=== PATIENT | male | born 1985 | race Caucasian/White ===

== ENCOUNTER 2017-02-26 09:08 | Emergency (ER) | payer OTHER ==
[~2017-02-26] VITALS: Ht 180.3 cm; Wt 105.0 kg
[~2017-02-26 09:08] MED LIST: XANAX
[2017-02-26] MEDS ORDERED: PROP80CA2 PO (09:14)
[2017-02-26] MEDS ORDERED: SODIUM CHLORIDE 0.9% 1,000 ML IV ONE (09:28)
[2017-02-26] MEDS ORDERED: LORAZEPAM 2MG/ML CPJ IV ONE (09:30)
[2017-02-26] MEDS ORDERED: NITROGLYCERIN OINT 1GM/INCH UDPKT TD ONE (09:30)
[2017-02-26] MEDS ORDERED: ASPIRIN 81MG TABLET PO ONE (09:30)
[2017-02-26 09:41] LABS: BASOPHILS % 0.6 % (0.0-2.0); EOSINOPHILS % 1.4 % (0.0-5.0); HEMATOCRIT. 49.7 % (42.0-52.0); HEMOGLOBIN. 16.8 g/dL (14.0-18.0); MEAN CORPUSCULAR HEMOGLOBIN 29.5 pg (28.0-32.0); MEAN CORPUSCULAR HGB CONC 33.8 g/dL (31.0-37.0); MEAN CORPUSCULAR VOLUME 87.4 fL (80.0-94.0); MONOCYTES % 6.2 % (2.0-8.0); NEUTROPHILS % 64.8 % (40.0-76.0); PLATELET 197 x1000/uL (130-400); RED BLOOD CELL COUNT 5.68 mill/uL (4.7-6.1); RED CELL DISTRIBUTION WIDTH 14.2 % (11.6-14.6); WHITE BLOOD COUNT 8.8 x1000/uL (4.5-11.0)
[2017-02-26 09:48] LABS: PROTHROMBIN TIME 10.9 sec
[2017-02-26 10:13] LABS: LACTIC ACID 4.2 mmol/L (0.4-2.0)
[2017-02-26] MEDS ORDERED: SODIUM CHLORIDE 0.9% 1000ML BAG (SEPSIS BOLUS) IV ONE (10:15)
[2017-02-26 10:18] LABS: ALANINE AMINOTRANSFERASE 48 IU/L (13-61); ALBUMIN 3.8 g/dL (3.4-5.0); ANION GAP 15; CALCIUM 8.5 mg/dL (8.5-10.1); CARBON DIOXIDE 22 mEq/L (21-32); CHLORIDE 109 mEq/L (98-107); ETHANOL BLOOD 120 mg/dL; INDEX HEMOLYSI 1 (1-3); INDEX ICTERIC 1 (1-4); INDEX LIPEMIC 1 (1-3); LIPASE 137 IU/L (73-393); UREA NITROGEN BLOOD 6 mg/dL (7-21)
[2017-02-26 10:22] LABS: TROPONIN I < 0.02 ng/mL (0.00-0.04); eGFR > 60 mL/min (>60)
[2017-02-26 10:27] LABS: NT PRO B-TYPE NATRIURETIC PEP 41 pg/mL (5-125)
[2017-02-26 10:29] LABS: THYROID STIMULATING HORMONE 0.71 uIU/mL (0.36-3.74)
[2017-02-26] MEDS ORDERED: POTASSIUM CHLORIDE 20MEQ TABLET SR PO ONE (10:45)
[2017-02-26] MEDS ORDERED: VISCOUS LIDOCAINE 2% 15 ML UDC PO STA (11:01)
[2017-02-26] MEDS ORDERED: MAGNESIUM/ALUMINUM HYDROXIDE/SIMETHICONE 30ML UDC PO STA (11:01)
[2017-02-26] MEDS ORDERED: MORPHINE SULFATE 4 MG/ML CPJ (NOT FOR IM USE) IV STA (11:01)
[2017-02-26] MEDS ORDERED: ONDANSETRON HCL 4MG/2ML VIAL IV STA (11:01)
[2017-02-26 11:23] LABS: CLARITY URINE CLEAR (CLEAR); COLOR URINE YELLOW (YELLOW); GLUCOSE URINE NEGATIVE (NEGATIVE); KETONES URINE 1+ (NEGATIVE); LEUKOCYTE ESTERASE URINE NEGATIVE (NEGATIVE); NITRITE URINE NEGATIVE (NEGATIVE); OCCULT BLOOD URINE TRACE (NEGATIVE); PH URINE 5.5 (4.5-8.0); PROTEIN URINE NEGATIVE (NEGATIVE); SPECIFIC GRAVITY URINE 1.018 (1.005-1.030); UROBILINOGEN URINE 0.2 E.U./dL (0.2-1.0)
[2017-02-26 11:36] LABS: BACTERIA URINE NONE SEEN; RBC URINE 0-2 /hpf (0-2); SQUAMOUS EPITHELIAL CELL URINE RARE /lpf (RARE/1+); WBC URINE 0-2 /hpf (0-2)
[2017-02-26 11:37] LABS: HYALINE CASTS URINE 0-5 /lpf
[2017-02-26 11:54] VITALS: BP 121/93
[2017-02-26 12:05] LABS: *AMPHETAMINES SCREEN URINE NEGATIVE (NEGATIVE); *BARBITURATES SCREEN URINE NEGATIVE (NEGATIVE); *BENZODIAZEPINES SCREEN URINE NEGATIVE (NEGATIVE); *COCAINE SCREEN URINE NEGATIVE (NEGATIVE); CANNABINOID URINE SCREEN NEGATIVE (NEGATIVE); ECSTASY MDMA SCREEN URINE NEGATIVE (NEGATIVE); METHADONE URINE SCREEN NEGATIVE (NEGATIVE); OPIATES URINE SCREEN NEGATIVE (NEGATIVE); PHENCYCLIDINE URINE SCREEN NEGATIVE (NEGATIVE)
== END 2017-02-26 13:37 | disposition home or self-care (01) ==
LOC: ER 09:28
DX: F41.0 Panic disorder [episodic paroxysmal anxiety] (principal); F10.10 Alcohol abuse, uncomplicated; R07.89 Other chest pain; I10 Essential (primary) hypertension; F17.210 Nicotine dependence, cigarettes, uncomplicated; E87.2 Acidosis; E87.6 Hypokalemia; Y90.6 Blood alcohol level of 120-199 mg/100 ml
CPT/HCPCS: 36415; 71010; 80053; 80305; 81001; 83605; 83690; 83880; 84443; 84484; 85025; 85610; 87040; 87086; 93005; 96361; 96374; 96375; 99285; G0482; J2060; J2270; J2405; J7030; Z7610

== ENCOUNTER 2017-06-01 09:44 | Emergency (ER) | payer OTHER ==
[~2017-06-01] VITALS: Ht 180.3 cm; Wt 100.0 kg
[~2017-06-01 09:44] MED LIST changes: +ALPR0.5T96 PO; +PROP80CA2 PO; -XANAX
[2017-06-01] MEDS ORDERED: SODIUM CHLORIDE 0.9% 1,000 ML IV ONE (10:14)
[2017-06-01] MEDS ORDERED: KETOROLAC 30MG/ML VIAL IV STA (10:14)
[2017-06-01 10:46] LABS: BASOPHILS % 0.6 % (0.0-2.0); EOSINOPHILS % 1.3 % (0.0-5.0); HEMATOCRIT. 47.4 % (42.0-52.0); HEMOGLOBIN. 16.2 g/dL (14.0-18.0); LYMPHOCYTES % 10.6 % (20.0-50.0); MEAN CORPUSCULAR HEMOGLOBIN 29.4 pg (28.0-32.0); MEAN CORPUSCULAR VOLUME 86.1 fL (80.0-94.0); MEAN PLATELET VOLUME 7.6 fl (7.4-10.4); MONOCYTES % 6.4 % (2.0-8.0); NEUTROPHILS % 81.1 % (40.0-76.0); PLATELET 231 x1000/uL (130-400); RED CELL DISTRIBUTION WIDTH 15.6 % (11.6-14.6)
[2017-06-01 10:54] LABS: CHLORIDE 107 mEq/L (98-107); PROTHROMBIN TIME 10.7 sec
[2017-06-01 11:05] LABS: CARBON DIOXIDE 22 mEq/L (21-32); ETHANOL BLOOD 100 mg/dL
[2017-06-01] MEDS ORDERED: FAMOTIDINE 20MG/2ML VIAL IV SCH (11:45)
[2017-06-01 12:15] VITALS: BP 145/50
[2017-06-01] MEDS ORDERED: DEXTROSE 50% WATER 50ML SYRINGE IV PRN (12:15)
[2017-06-01] MEDS ORDERED: DEXTROSE 50% WATER 50ML SYRINGE IV ONE (12:15)
[2017-06-01] MEDS ORDERED: FAMOTIDINE 20MG/2ML VIAL IV ONE (12:30)
[2017-06-02] MEDS ORDERED: FAMOTIDINE 20MG/2ML VIAL IV ONE (09:00)
== END 2017-06-01 13:42 | disposition home or self-care (01) ==
LOC: ER 09:45
DX: R10.9 Unspecified abdominal pain (principal); R07.2 Precordial pain; R05 Cough; F10.10 Alcohol abuse, uncomplicated; Z72.0 Tobacco use
CPT/HCPCS: 36415; 80053; 83690; 85025; 85610; 93005; 96361; 96374; 96375; 99285; G0482; J1885; J3490; J7030; Z7610

== ENCOUNTER 2017-08-01 13:22 | Emergency (ER) | payer OTHER ==
[~2017-08-01] VITALS: Ht 180.3 cm; Wt 108.0 kg
[~2017-08-01 13:22] MED LIST changes: +ALPR0.5T PO; -ALPR0.5T96 PO; +METO25TA6 PO
[2017-08-01 15:52] LABS: BASOPHILS % 0.8 % (0.0-2.0); HEMATOCRIT. 46.4 % (42.0-52.0); HEMOGLOBIN. 15.8 g/dL (14.0-18.0); LYMPHOCYTES % 16.4 % (20.0-50.0); MEAN CORPUSCULAR HEMOGLOBIN 29.5 pg (28.0-32.0); MEAN CORPUSCULAR VOLUME 86.5 fL (80.0-94.0); MEAN PLATELET VOLUME 8.1 fl (7.4-10.4); MONOCYTES % 6.1 % (2.0-8.0); NEUTROPHILS % 75.7 % (40.0-76.0); PLATELET 254 x1000/uL (130-400); RED BLOOD CELL COUNT 5.36 mill/uL (4.7-6.1); RED CELL DISTRIBUTION WIDTH 13.6 % (11.6-14.6)
[2017-08-01 16:08] LABS: CARBON DIOXIDE 24 mEq/L (21-32); CHLORIDE 105 mEq/L (98-107)
[2017-08-01 16:10] LABS: TROPONIN I < 0.02 ng/mL (0.00-0.04)
[2017-08-01] MEDS ORDERED: FAMOTIDINE 20MG/2ML VIAL IV STA (16:55)
[2017-08-01] MEDS ORDERED: ONDANSETRON HCL 4MG/2ML VIAL IV STA (16:55)
[2017-08-01] MEDS ORDERED: MORPHINE SULFATE 4 MG/ML CPJ (NOT FOR IM USE) IV STA (16:55)
[2017-08-01] MEDS ORDERED: SODIUM CHLORIDE 0.9% 1,000 ML IV ONE (16:55)
[2017-08-01 18:57] LABS: INR 1.1; PROTHROMBIN TIME 11.2 sec (9.4-11.6)
[2017-08-01] MEDS ORDERED: ONDANSETRON HCL 4MG/2ML VIAL IV ONE (19:00)
[2017-08-01] MEDS ORDERED: MORPHINE SULFATE 4 MG/ML CPJ (NOT FOR IM USE) IV ONE (19:00)
[2017-08-01] MEDS ORDERED: KETOROLAC 30MG/ML VIAL IV ONE (19:15)
[2017-08-01 19:55] VITALS: BP 121/71
== END 2017-08-01 22:37 | disposition home or self-care (01) ==
LOC: ER 14:54 → CANBEDREQ 20:32 → ER 22:37
DX: R10.31 Right lower quadrant pain (principal); R16.0 Hepatomegaly, not elsewhere classified; R00.0 Tachycardia, unspecified; I10 Essential (primary) hypertension; K56.60 Unspecified intestinal obstruction; L02.211 Cutaneous abscess of abdominal wall; F41.9 Anxiety disorder, unspecified; F17.210 Nicotine dependence, cigarettes, uncomplicated; Z87.19 Personal history of other diseases of the digestive system; Z71.6 Tobacco abuse counseling
CPT/HCPCS: 36415; 71010; 74176; 80053; 83690; 84484; 85025; 85610; 93005; 96361; 96374; 96375; 96376; 99285; 99406; G0482; J1885; J2270; J2405; J3490; J7030

== ENCOUNTER 2017-09-25 13:22 | Emergency (ER) | payer OTHER ==
[~2017-09-25] VITALS: Ht 180.3 cm; Wt 110.0 kg
[2017-09-25] MEDS ORDERED: MORPHINE SULFATE 4 MG/ML CPJ (NOT FOR IM USE) IV STA (14:14)
[2017-09-25 14:35] LABS: BASOPHILS % 0.9 % (0.0-2.0); EOSINOPHILS % 0.6 % (0.0-5.0); HEMATOCRIT. 49.2 % (42.0-52.0); HEMOGLOBIN. 17.2 g/dL (14.0-18.0); LYMPHOCYTES % 21.5 % (20.0-50.0); MEAN CORPUSCULAR HEMOGLOBIN 29.8 pg (28.0-32.0); MEAN CORPUSCULAR VOLUME 85.4 fL (80.0-94.0); MEAN PLATELET VOLUME 7.5 fl (7.4-10.4); MONOCYTES % 5.6 % (2.0-8.0); NEUTROPHILS % 71.4 % (40.0-76.0); PLATELET 281 x1000/uL (130-400); RED BLOOD CELL COUNT 5.76 mill/uL (4.7-6.1)
[2017-09-25 14:48] LABS: D-DIMER 0.57 mg/L FEU (<0.50); PROTHROMBIN TIME 10.7 sec (9.4-11.6)
[2017-09-25 14:51] LABS: CARBON DIOXIDE 25 mEq/L (21-32); CHLORIDE 104 mEq/L (98-107)
[2017-09-25] MEDS ORDERED: SODIUM CHLORIDE 0.9% 1,000 ML IV SCH (15:20)
[2017-09-25] MEDS ORDERED: IPRATROPIUM/ALBUTEROL 0.5-3(2.5)MG/3ML NEB INH PRN (15:30)
[2017-09-25] MEDS ORDERED: ONDANSETRON HCL 4MG/2ML VIAL IV PRN (15:30)
[2017-09-25] MEDS ORDERED: ENOXAPARIN 40MG/0.4ML SYR SUBCUT SCH (15:30)
[2017-09-25] MEDS ORDERED: ACETAMINOPHEN 325MG TABLET PO PRN (15:30)
[2017-09-25] MEDS ORDERED: MAGNESIUM/ALUMINUM HYDROXIDE/SIMETHICONE 30ML UDC PO PRN (15:30)
[2017-09-25] MEDS ORDERED: THIAMINE HCL 100MG TABLET PO SCH (15:30)
[2017-09-25] MEDS ORDERED: HYDROCODONE/ACETAMINOPHEN 5/325MG TABLET PO PRN (15:30)
[2017-09-25] MEDS ORDERED: CLONIDINE 0.1MG TABLET PO PRN (15:30)
[2017-09-25] MEDS ORDERED: LORAZEPAM 2MG/ML CPJ IV PRN (15:30)
[2017-09-25] MEDS ORDERED: IOHEXOL-350 100 ML BOTTLE ONE (15:34)
[2017-09-25] MEDS ORDERED: MORPHINE SULFATE 4 MG/ML CPJ (NOT FOR IM USE) IV ONE (15:51)
[2017-09-25] MEDS: SUCRALFATE 1 G/10 ML UDC PO ONE ×2 (16:06→16:47)
[2017-09-25] MEDS ORDERED: MORPHINE SULFATE 4 MG/ML CPJ (NOT FOR IM USE) IV PRN (16:15)
[2017-09-25] MEDS ORDERED: FAMOTIDINE 20MG/2ML VIAL IV ONE (16:15)
[2017-09-25 16:45] VITALS: BP 135/83
[2017-09-26] MEDS ORDERED: ASPIRIN 81MG EC TABLET PO SCH (09:00)
[2017-09-26] MEDS ORDERED: MULTIVITAMINS,THER W-MINERALS TABLET PO SCH (09:00)
== END 2017-09-25 17:04 | disposition home or self-care (01) ==
LOC: ER 14:10
DX: R07.89 Other chest pain (principal); I10 Essential (primary) hypertension; R00.0 Tachycardia, unspecified; F17.210 Nicotine dependence, cigarettes, uncomplicated; F10.21 Alcohol dependence, in remission; Z71.6 Tobacco abuse counseling
CPT/HCPCS: 36415; 71010; 71275; 80053; 85025; 85379; 85610; 93005; 96374; 96375; 96376; 99285; J2060; J2270; J3490; Q9967; Z7610

== ENCOUNTER 2017-10-31 14:11 | Emergency (ER) | payer OTHER ==
[~2017-10-31] VITALS: Ht 172.7 cm; Wt 109.0 kg
[2017-10-31] MEDS ORDERED: FAMOTIDINE 20MG/2ML VIAL IV STA (17:46)
[2017-10-31] MEDS ORDERED: SODIUM CHLORIDE 0.9% 1,000 ML IV ONE (17:46)
[2017-10-31] MEDS ORDERED: ONDANSETRON HCL 4MG/2ML VIAL IV STA (17:46)
[2017-10-31] MEDS ORDERED: KETOROLAC 30MG/ML VIAL IV STA (17:46)
[2017-10-31 18:18] LABS: BASOPHILS % 0.5 % (0.0-2.0); EOSINOPHILS % 0.6 % (0.0-5.0); LYMPHOCYTES % 13.8 % (20.0-50.0); MEAN CORPUSCULAR HEMOGLOBIN 29.2 pg (28.0-32.0); MEAN CORPUSCULAR VOLUME 85.5 fL (80.0-94.0); MEAN PLATELET VOLUME 7.8 fl (7.4-10.4); MONOCYTES % 6.5 % (2.0-8.0); NEUTROPHILS % 78.6 % (40.0-76.0); PLATELET 244 x1000/uL (130-400); RED BLOOD CELL COUNT 5.49 mill/uL (4.7-6.1); RED CELL DISTRIBUTION WIDTH 14.4 % (11.6-14.6)
[2017-10-31 18:19] LABS: CHLORIDE 105 mEq/L (98-107)
[2017-10-31 18:20] LABS: CLARITY URINE CLEAR (CLEAR); COLOR URINE YELLOW (YELLOW); KETONES URINE 1+ (NEGATIVE); LEUKOCYTE ESTERASE URINE NEGATIVE (NEGATIVE); NITRITE URINE NEGATIVE (NEGATIVE); OCCULT BLOOD URINE TRACE (NEGATIVE); PH URINE 5.5 (4.5-8.0); PROTEIN URINE NEGATIVE (NEGATIVE); SPECIFIC GRAVITY URINE 1.029 (1.005-1.030); UROBILINOGEN URINE 0.2 E.U./dL (0.2-1.0)
[2017-10-31 18:20] LABS: PROTHROMBIN TIME 10.8 sec (9.4-11.6)
[2017-10-31 18:28] LABS: CARBON DIOXIDE 25 mEq/L (21-32)
[2017-10-31] MEDS ORDERED: HYDROCODONE/ACETAMINOPHEN 5/325MG TABLET PO ONE (19:30)
[2017-10-31 20:29] LABS: *AMPHETAMINES SCREEN URINE NEGATIVE (NEGATIVE); *BARBITURATES SCREEN URINE NEGATIVE (NEGATIVE); *BENZODIAZEPINES SCREEN URINE NEGATIVE (NEGATIVE); *COCAINE SCREEN URINE NEGATIVE (NEGATIVE); CANNABINOID URINE SCREEN NEGATIVE (NEGATIVE); METHADONE URINE SCREEN NEGATIVE (NEGATIVE); OPIATES URINE SCREEN NEGATIVE (NEGATIVE); PHENCYCLIDINE URINE SCREEN NEGATIVE (NEGATIVE)
[2017-10-31 22:07] VITALS: BP 108/67
== END 2017-10-31 22:09 | disposition home or self-care (01) ==
LOC: ER 14:28
DX: R10.31 Right lower quadrant pain (principal); R31.9 Hematuria, unspecified; I10 Essential (primary) hypertension; F17.210 Nicotine dependence, cigarettes, uncomplicated
CPT/HCPCS: 36415; 80053; 80305; 81001; 83690; 85025; 85610; 96361; 96374; 96375; 99284; J1885; J2405; J3490; J7030; Z7610

== ENCOUNTER 2018-04-03 12:31 | Inpatient (IN) | payer OTHER ==
[~2018-04-03] VITALS: Ht 172.7 cm; Wt 110.7 kg
[2018-04-03] MEDS ORDERED: PROP10TA10 PO (12:43)
[2018-04-03] MEDS ORDERED: SODIUM CHLORIDE 0.9% 1,000 ML IV ONE (12:59)
[2018-04-03] MEDS ORDERED: MORPHINE SULFATE 4 MG/ML CPJ (NOT FOR IM USE) IV STA (12:59)
[2018-04-03] MEDS ORDERED: ONDANSETRON HCL 4MG/2ML VIAL IV STA (12:59)
[2018-04-03 13:24] LABS: BASOPHILS % 0.6 % (0.0-2.0); EOSINOPHILS % 0.4 % (0.0-5.0); HEMATOCRIT. 46.8 % (42.0-52.0); LYMPHOCYTES % 13.2 % (20.0-50.0); MEAN CORPUSCULAR HEMOGLOBIN 29.5 pg (28.0-32.0); MEAN CORPUSCULAR VOLUME 86.4 fL (80.0-94.0); MEAN PLATELET VOLUME 7.9 fl (7.4-10.4); MONOCYTES % 6.3 % (2.0-8.0); NEUTROPHILS % 79.5 % (40.0-76.0); PLATELET 260 x1000/uL (130-400); RED BLOOD CELL COUNT 5.42 mill/uL (4.7-6.1); RED CELL DISTRIBUTION WIDTH 14.2 % (11.6-14.6)
[2018-04-03 13:29] LABS: CHLORIDE 111 mEq/L (98-107)
[2018-04-03 13:30] LABS: PROTHROMBIN TIME 10.8 sec (9.4-11.6)
[2018-04-03 15:50] LABS: CLARITY URINE CLEAR (CLEAR); COLOR URINE YELLOW (YELLOW); KETONES URINE TRACE (NEGATIVE); LEUKOCYTE ESTERASE URINE NEGATIVE (NEGATIVE); NITRITE URINE NEGATIVE (NEGATIVE); OCCULT BLOOD URINE NEGATIVE (NEGATIVE); PH URINE 5.5 (4.5-8.0); PROTEIN URINE TRACE (NEGATIVE); UROBILINOGEN URINE 0.2 E.U./dL (0.2-1.0)
[2018-04-03] MEDS ORDERED: MORPHINE SULFATE 4 MG/ML CPJ (NOT FOR IM USE) IV ONE (16:45)
[2018-04-03] MEDS ORDERED: ONDANSETRON HCL 4MG/2ML VIAL IV ONE (16:45)
[2018-04-03] MEDS ORDERED: ACETAMINOPHEN 325MG TABLET PO PRN (18:15)
[2018-04-03] MEDS ORDERED: ONDANSETRON HCL 4MG/2ML VIAL IV PRN (18:15)
[2018-04-03] MEDS ORDERED: MAGNESIUM/ALUMINUM HYDROXIDE/SIMETHICONE 30ML UDC PO PRN (18:15)
[2018-04-03] MEDS ORDERED: IPRATROPIUM/ALBUTEROL 0.5-3(2.5)MG/3ML NEB INH PRN (18:15)
[2018-04-03] MEDS ORDERED: DOCUSATE SODIUM 100MG CAPSULE PO PRN (18:15)
[2018-04-03] MEDS ORDERED: CLONIDINE 0.1MG TABLET PO PRN (18:15)
[2018-04-03] MEDS ORDERED: LORAZEPAM 2MG/ML CPJ IV PRN (18:15)
[2018-04-03 18:43] LABS: CHLORIDE 112 mEq/L (98-107)
[2018-04-03 18:47] LABS: ETHANOL BLOOD < 10 mg/dL
[2018-04-03] MEDS: HYDROCODONE/ACETAMINOPHEN 5/325MG TABLET PO PRN ×2 (19:19→23:02)
[2018-04-03 21:00] VITALS: BP 127/82
[2018-04-03] MEDS ORDERED: ONDANSETRON HCL 4MG TABLET PO PRN ×2 (21:30)
[2018-04-03 23:25] LABS: CREATINE KINASE 180 IU/L (39-308)
[2018-04-03 23:27] LABS: CREATINE KINASE MB FRACTION 0.7 ng/mL (0.5-3.6)
[2018-04-04] VITALS: BP 120/64
[2018-04-04] MEDS: HYDROCODONE/ACETAMINOPHEN 5/325MG TABLET PO PRN ×2 (02:56→08:33)
[2018-04-04 04:00] VITALS: BP 107/58
[2018-04-04] MEDS ORDERED: PANTOPRAZOLE 40MG DR TABLET PO SCH (07:10)
[2018-04-04 07:54] LABS: *BENZODIAZEPINES SCREEN URINE NEGATIVE (NEGATIVE); *COCAINE SCREEN URINE NEGATIVE (NEGATIVE)
[2018-04-04 07:56] LABS: METHADONE URINE SCREEN NEGATIVE (NEGATIVE); OPIATES URINE SCREEN PRESUMTIVE POSITIVE (NEGATIVE)
[2018-04-04 07:57] LABS: *AMPHETAMINES SCREEN URINE NEGATIVE (NEGATIVE); *BARBITURATES SCREEN URINE NEGATIVE (NEGATIVE); CANNABINOID URINE SCREEN NEGATIVE (NEGATIVE); PHENCYCLIDINE URINE SCREEN NEGATIVE (NEGATIVE)
[2018-04-04 08:00] VITALS: BP 122/74
[2018-04-04] MEDS ORDERED: ASPIRIN 81MG EC TABLET PO SCH (09:00)
[2018-04-04] MEDS ORDERED: MULTIVITAMINS,THER W-MINERALS TABLET PO SCH (09:00)
[2018-04-04] MEDS ORDERED: THIAMINE HCL 100MG TABLET PO SCH (09:00)
[2018-04-04] MEDS ORDERED: FOLIC ACID 1MG TABLET PO SCH (09:00)
[2018-04-04 09:08] LABS: BASOPHILS % 0.5 % (0.0-2.0); EOSINOPHILS % 4.1 % (0.0-5.0); HEMATOCRIT. 43.9 % (42.0-52.0); HEMOGLOBIN. 14.9 g/dL (14.0-18.0); LYMPHOCYTES % 28.3 % (20.0-50.0); MEAN CORPUSCULAR HEMOGLOBIN 29.5 pg (28.0-32.0); MEAN CORPUSCULAR VOLUME 86.5 fL (80.0-94.0); MEAN PLATELET VOLUME 8.2 fl (7.4-10.4); MONOCYTES % 10.9 % (2.0-8.0); NEUTROPHILS % 56.2 % (40.0-76.0); PLATELET 224 x1000/uL (130-400); RED BLOOD CELL COUNT 5.07 mill/uL (4.7-6.1)
[2018-04-04 09:46] LABS: HDL CHOLESTEROL 36 mg/dL (40-59)
[2018-04-04 09:49] LABS: LDL CHOLESTEROL 77 mg/dL (5-100)
[2018-04-04 09:50] LABS: CREATINE KINASE 150 IU/L (39-308)
[2018-04-04 09:53] LABS: CREATINE KINASE MB FRACTION 0.7 ng/mL (0.5-3.6)
[2018-04-04] MEDS ORDERED: ACETAMINOPHEN 325MG TABLET PO PRN (11:30)
[2018-04-04] MEDS ORDERED: HYDROCODONE/ACETAMINOPHEN 5/325MG TABLET PO PRN (11:30)
[2018-04-04] MEDS ORDERED: ONDANSETRON HCL 4MG/2ML VIAL IV PRN (11:30)
[2018-04-04] MEDS ORDERED: GUAIFENESIN 200MG/10ML SUGAR FREE UDC PO PRN (11:30)
[2018-04-04] MEDS ORDERED: LORAZEPAM 0.5MG TABLET PO PRN (11:30)
[2018-04-04] MEDS ORDERED: HYDROCODONE/ACETAMINOPHEN 10/325MG TABLET PO PRN (11:30)
[2018-04-04] MEDS ORDERED: ACETAMINOPHEN 650MG SUPP PR PRN (11:30)
[2018-04-04] MEDS ORDERED: DOCUSATE SODIUM 100MG CAPSULE PO PRN (11:30)
[2018-04-04] MEDS ORDERED: NA PHOS,M-B/NA PHOS,DI-BA ENEMA 118ML PR PRN (11:30)
[2018-04-04] MEDS ORDERED: DIPHENHYDRAMINE 50MG/ML VIAL IV PRN (11:30)
[2018-04-04] MEDS ORDERED: ACETAMINOPHEN 650MG/20.3ML UDC GT PRN (11:30)
[2018-04-04] MEDS ORDERED: IPRATROPIUM/ALBUTEROL 0.5-3(2.5)MG/3ML NEB INH PRN (11:30)
[2018-04-04] MEDS: MORPHINE SULFATE 4 MG/ML CPJ (NOT FOR IM USE) IV PRN ×3 (11:56→21:08)
[2018-04-04 12:00] VITALS: BP 113/72
[2018-04-04] MEDS ORDERED: ONDANSETRON 4MG ODT PO PRN (12:00)
[2018-04-04 16:00] VITALS: BP 110/76
[2018-04-04 20:00] VITALS: BP 108/72
[2018-04-04] MEDS ORDERED: LORAZEPAM 2MG/ML CPJ IV PRN (21:30)
[2018-04-05] VITALS: BP 115/75
[2018-04-05] MEDS ORDERED: PROPRANOLOL HCL 20MG TABLET PO SCH (09:00)
== END 2018-04-05 00:05 | disposition left against medical advice (07) ==
LOC: ER 12:32 → 8WST 17:00 → EDBEDREQ 17:02 → EDBEDREQTM 17:02 → ENRESERV 18:57
PROVIDERS: ADMIT Internal Medicine; ATTEND Internal Medicine
DX: K81.0 Acute cholecystitis (principal); K76.0 Fatty (change of) liver, not elsewhere classified; I10 Essential (primary) hypertension; F10.10 Alcohol abuse, uncomplicated; Z53.21 Procedure and treatment not carried out due to patient leaving prior to being seen by health care provider; F41.9 Anxiety disorder, unspecified; F17.200 Nicotine dependence, unspecified, uncomplicated; M54.9 Dorsalgia, unspecified; Z79.899 Other long term (current) drug therapy
CPT/HCPCS: 36415; 71045; 74176; 76705; 80048; 80053; 80061; 80305; 81003; 82550; 82553; 83690; 83735; 84443; 84484; 85025; 85610; 85730; 93005; 93970; 96361; 96374; 96375; 96376; 97161; 99285; G0482; J2270; J2405; J7030; Q0162

== ENCOUNTER 2018-08-01 13:08 | Emergency (ER) | payer OTHER ==
[~2018-08-01] VITALS: Ht 180.3 cm; Wt 59.0 kg
[~2018-08-01 13:08] MED LIST changes: +PROP10TA10 PO
[2018-08-01] MEDS ORDERED: MORPHINE SULFATE 4 MG/ML CPJ (NOT FOR IM USE) IV ONE (14:15)
[2018-08-01] MEDS ORDERED: ONDANSETRON HCL 4MG/2ML INJ IV ONE (14:15)
[2018-08-01 14:18] LABS: BASOPHILS % 0.7 % (0.0-2.0); EOSINOPHILS % 0.7 % (0.0-5.0); HEMATOCRIT. 49.7 % (42.0-52.0); HEMOGLOBIN. 16.9 g/dL (14.0-18.0); LYMPHOCYTES % 17.2 % (20.0-50.0); MEAN CORPUSCULAR VOLUME 88.4 fL (80.0-94.0); MEAN PLATELET VOLUME 8.1 fl (7.4-10.4); MONOCYTES % 5.1 % (2.0-8.0); NEUTROPHILS % 76.3 % (40.0-76.0); PLATELET 268 x1000/uL (130-400); RED BLOOD CELL COUNT 5.63 mill/uL (4.7-6.1); RED CELL DISTRIBUTION WIDTH 14.2 % (11.6-14.6)
[2018-08-01 14:25] LABS: CHLORIDE 101 mEq/L (98-107)
[2018-08-01 14:26] LABS: PROTHROMBIN TIME 10.4 sec (9.1-11.1)
[2018-08-01 14:38] LABS: CLARITY URINE CLEAR (CLEAR); COLOR URINE YELLOW (YELLOW); KETONES URINE NEGATIVE (NEGATIVE); LEUKOCYTE ESTERASE URINE TRACE (NEGATIVE); NITRITE URINE NEGATIVE (NEGATIVE); OCCULT BLOOD URINE 2+ (NEGATIVE); PROTEIN URINE NEGATIVE (NEGATIVE); SPECIFIC GRAVITY URINE 1.008 (1.005-1.030); UROBILINOGEN URINE 0.2 E.U./dL (0.2-1.0)
[2018-08-01] MEDS ORDERED: KETOROLAC 60MG/2ML VIAL IM ONE (15:45)
[2018-08-01] MEDS ORDERED: SODIUM CHLORIDE 0.9% 1,000 ML IV ONE (15:45)
[2018-08-01] MEDS ORDERED: VISCOUS LIDOCAINE 2% 15 ML UDC PO ONE (18:00)
[2018-08-01] MEDS ORDERED: MAGNESIUM/ALUMINUM HYDROXIDE/SIMETHICONE 30ML UDC PO ONE (18:00)
[2018-08-01 18:50] VITALS: BP 119/71
== END 2018-08-01 18:50 | disposition home or self-care (01) ==
LOC: ER 13:08
DX: N20.0 Calculus of kidney (principal); K21.9 Gastro-esophageal reflux disease without esophagitis; I10 Essential (primary) hypertension; F41.9 Anxiety disorder, unspecified; F17.200 Nicotine dependence, unspecified, uncomplicated
CPT/HCPCS: 36415; 74176; 80053; 81003; 83690; 85025; 85610; 93005; 96372; 96374; 96375; 99285; J1885; J2270; J2405; J7030

== ENCOUNTER 2018-08-07 14:45 | Emergency (ER) | payer OTHER ==
[~2018-08-07] VITALS: Ht 182.9 cm; Wt 91.0 kg
[2018-08-07 14:56] VITALS: BP 148/93
== END 2018-08-07 19:51 | disposition left against medical advice (07) ==
LOC: ER 14:45
DX: R10.9 Unspecified abdominal pain (principal); Z53.21 Procedure and treatment not carried out due to patient leaving prior to being seen by health care provider
CPT/HCPCS: 99283

== ENCOUNTER 2019-05-07 10:08 | Emergency (ER) | payer MEDICAID, OTHER ==
[~2019-05-07] VITALS: Ht 180.3 cm; Wt 110.0 kg
[2019-05-07] MEDS ORDERED: KETOROLAC 15MG/ML VIAL IV ONE ×2 (11:00→13:00)
[2019-05-07] MEDS ORDERED: SODIUM CHLORIDE 0.9% 1,000 ML IV ONE (11:00)
[2019-05-07] MEDS ORDERED: ACETAMINOPHEN 325MG TABLET PO ONE (11:00)
[2019-05-07 13:00] VITALS: BP 139/96
[2019-05-07] MEDS ORDERED: ONDANSETRON HCL 4MG/2ML INJ IV ONE (13:00)
== END 2019-05-07 13:30 | disposition home or self-care (01) ==
LOC: ER 10:08
DX: J06.9 Acute upper respiratory infection, unspecified (principal); R07.89 Other chest pain; R51 Headache; R00.0 Tachycardia, unspecified; I10 Essential (primary) hypertension; F17.200 Nicotine dependence, unspecified, uncomplicated; R53.1 Weakness; R19.7 Diarrhea, unspecified
CPT/HCPCS: 71045; 93005; 96361; 96374; 96375; 96376; 99283; J1885; J2405; J7030